=== PATIENT | male | born 1955 ===

== ENCOUNTER 2022-09-23 05:39 | Day surgery (SDC) | payer OTHER ==
[~2022-09-23] VITALS: Ht 167.6 cm; Wt 78.0 kg
[~2022-09-23 05:39] MED LIST: CRESTOR5 MG PO; FLONASE IH; PATANASE30.5 GM
[2022-09-23] MEDS ORDERED: OXYC1TAB9 PO (11:19)
== END 2022-09-23 15:35 | disposition home or self-care (01) ==
LOC: CIR.AMB 05:39
PROVIDERS: ATTEND Surgery
DX: K62.5 Hemorrhage of anus and rectum (principal); K64.8 Other hemorrhoids; K64.4 Residual hemorrhoidal skin tags; K64.2 Third degree hemorrhoids; Z20.822 Contact with and (suspected) exposure to COVID-19; K62.89 Other specified diseases of anus and rectum; I10 Essential (primary) hypertension